=== PATIENT | female | born 1950 | race Two or more races ===

== ENCOUNTER 2019-08-18 14:57 | Inpatient (IN) | payer MEDICARE, OTHER ==
[~2019-08-18] VITALS: Ht 160 cm; Wt 63.5 kg
[2019-08-18] MEDS ORDERED: ESCI5TAB PO (15:29)
[2019-08-18] MEDS ORDERED: IPRA3AMP23 IH (15:29)
[2019-08-18] MEDS ORDERED: MULT-659 PO (15:29)
[2019-08-18] MEDS ORDERED: LACT10SO PO (15:29)
[2019-08-18] MEDS ORDERED: RIFA550T PO (15:29)
[2019-08-18] MEDS ORDERED: INSU100V11 SQ ×2 (15:29)
[2019-08-18] MEDS ORDERED: POLY17PO4 PO (15:29)
[2019-08-18] MEDS ORDERED: OMEP20CA15 PO (15:29)
[2019-08-18] MEDS ORDERED: ACET-2605 PO (15:29)
[2019-08-18] MEDS ORDERED: FURO-145 PO (15:29)
[2019-08-18] MEDS ORDERED: GLUC1KIT IM (15:29)
[2019-08-18] MEDS ORDERED: AMIO200T4 PO (15:29)
[2019-08-18] MEDS ORDERED: L.RH1CAP2 PO (15:29)
[2019-08-18] MEDS ORDERED: SPIR50TA5 PO (15:29)
[2019-08-18] MEDS ORDERED: ATOR10TA PO (15:29)
[2019-08-18] MEDS ORDERED: INSU100V10 SQ (15:29)
[2019-08-18 15:37] LABS: BASOPHILS % (AUTO) 0.4 % (0.0-2.0); HEMATOCRIT 26 % (33-45); HEMOGLOBIN 8.6 g/dL (11.5-14.8); LYMPHOCYTES # (AUTO) 0.8 /CMM (0.8-4.8); LYMPHOCYTES % (AUTO) 10.9 % (20.0-44.0); MEAN CORPUSCULAR HGB CONC 34 g/dl (31.0-36.0); MEAN CORPUSCULAR VOLUME 93 fL (82-100); MONOCYTES # (AUTO) 0.5 /CMM (0.1-1.30); MONOCYTES % (AUTO) 7.8 % (2.0-12.0); NEUTROPHILS # (AUTO) 5.2 /CMM (1.8-8.9); NEUTROPHILS % (AUTO) 74.9 % (43.0-81.0); PLATELET COUNT (AUTO) 121 /CMM (150-450); RED BLOOD CELL COUNT(AUTO) 2.75 MIL/uL (4.0-5.2)
[2019-08-18 15:51] LABS: ALBUMIN 2.3 g/dL (3.4-5.0); BILIRUBIN,TOTAL 1.6 mg/dL (0.2-1.0); CALCIUM, SERUM 8.3 mg/dL (8.5-10.1); POTASSIUM 3.3 mmol/L (3.5-5.1); TOTAL PROTEIN, SERUM 6.6 g/dL (6.4-8.2)
--- NOTE | 2019-08-18 15:55 | NUR ---
ER ordered Us guided paracentesis, informed ESDRAS Gunn that we don't have a Radiologist onsite as he has left for the day
--- NOTE | 2019-08-18 16:30 | NUR ---
Awaiting Paracentesis by ER provider
--- NOTE | 2019-08-18 17:01 | NUR ---
[facility] - [facility]LL[facility] - PAGED VIA EXCHANGE
--- NOTE | 2019-08-18 17:57 | NUR ---
Pt going to Tele pending paracentesis in the morning. Nurse [employer] w/RN Gilberto. No acute distress, transported to floor Stable
[2019-08-18] MEDS ORDERED: MAG HYDROX/AL HYDROX/SIMETH 30 ML UDC PO PRN ×2 (18:00→18:15)
[2019-08-18] MEDS ORDERED: MAGNESIUM HYDROXIDE 30 ML UDC PO PRN ×2 (18:00→18:15)
[2019-08-18] MEDS ORDERED: INSULIN REGULAR, HUMAN 100 UNIT/ML 3 ML VIAL SQ PRN (18:00)
[2019-08-18] MEDS ORDERED: ACETAMINOPHEN 325 MG TABLET PO PRN ×2 (18:00→18:15)
[2019-08-18] MEDS ORDERED: ZOLPIDEM TARTRATE 5 MG TABLET PO PRN ×2 (18:00→18:15)
[2019-08-18] MEDS ORDERED: HYDROCODONE/APAP 5/325MG 1 EACH TABLET PO PRN ×2 (18:00→18:15)
[2019-08-18] MEDS ORDERED: DEXTROSE 50%-WATER 50 ML DISP.SYRIN IV PRN ×2 (18:00→18:15)
[2019-08-18] MEDS ORDERED: Z GUARD REMEDY 2 OZ OINT TP PRN ×2 (18:00→18:15)
[2019-08-18] MEDS ORDERED: ONDANSETRON HCL/PF 4 MG/2 ML VIAL IVP PRN ×2 (18:00→18:15)
[2019-08-18 18:15] VITALS: BP 140/61
--- NOTE | 2019-08-18 18:15 | NUR ---
RN NOTES RECEIVED PATIENT VIA GURNEY ACCOMPANIED BY E.R NURSE. A/O X3. CYMRAES SPEAKING, ON RA, TOLERATING WELL. NO SIGNS OF DISTRESS OR DISCOMFORT AT THIS TIME. PATIENT ORIENTED TO ROOM, UNIT AND STAFF. V/S TAKEN FOLLOWS: BP- 140/61, T- 98.5, OK-73, O2 SAT 100%. IV ACCESS ON LEFT HAND #22, PATENT AND INTACT. SAFETY MEASURES IN PLACE, BED PLACED IN LOWEST LOCKED POSITION WITH SIDE RAILS UP X2. CALL LIGHT WITHIN EASY REACH. WILL ENDORSE TO BED TEACHER NURSE FOR ADMISSION.
[2019-08-18 20:00] VITALS: BP 145/52
--- NOTE | 2019-08-18 20:00 | NUR ---
RN notes Received patient awake, alert and oriented x3, indonesian speaking and understand some khmer. Denies any pain and discomfort. Vital signs stable, afebrile. Skin assessment done, sacral redness noted, covered with mepilex. IV access on left hand patent and intact. Plan of care discussed with the patient with one of the [employer]LE ASSEMBLERMadelaine as merchandise director and verbalized understanding. Kept clean and dry. Safety measures in place. Will continue to monitor.
[2019-08-18] MEDS ORDERED: BLOOD SUGAR DIAGNOSTIC 1 EACH STRIP IN SCH (22:00)
[2019-08-18] MEDS: BLOOD SUGAR DIAGNOSTIC 1 EACH STRIP IN SCH (22:23)
[2019-08-18] MEDS: INSULIN REGULAR, HUMAN 100 UNIT/ML 3 ML VIAL SQ PRN (22:26)
--- NOTE | 2019-08-19 06:15 | NUR ---
RN Notes Patient sleep well overnight, vital signs stable, afebrile. Denies pain and discomfort. No complain of nausea and vomiting. Plan today , for CT guided paracentesis, kept NPO. Kept clean and dry. All needs attended. Will endorse for continuity of care.
[2019-08-19] MEDS: BLOOD SUGAR DIAGNOSTIC 1 EACH STRIP IN SCH ×3 (06:45→17:23)
[2019-08-19] MEDS: INSULIN REGULAR, HUMAN 100 UNIT/ML 3 ML VIAL SQ PRN ×2 (06:46→14:15)
--- NOTE | 2019-08-19 07:05 | NUR ---
MS RN OPENING NOTES RECEIVED PATIENT IN BED AWAKE AT THIS TIME WATCHING TV. PT IS KINYARWANDA SPEAKING, A/O X3. SATURATING WELL ON RA, NO APPARENT SIGNS OF DISTRESS OR DISCOMFORT NOTED AT THIS TIME. IV ACCESS ON LEFT HAND #22, PATENT AND INTACT. SAFETY PRECAUTIONS IN PLACE, BED IN LOWEST LOCKED POSITION WITH SIDE RAILS UP X2. CALL LIGHT WITHIN EASY REACH. WILL CONTINUE TO MONITOR
[2019-08-19] MEDS ORDERED: PANTOPRAZOLE 40 MG TABLET.DR PO SCH ×2 (07:30)
[2019-08-19 08:00] VITALS: BP 141/66
--- NOTE | 2019-08-19 09:31 | NUR ---
MS DEWITT NOTES PT REFUSED PANTOPRAZOLE 40MG PO AFTER NURSE HAD PREPARED MED. NURSE HAD TO CLARIFY ADMINISTRATION OF MED WITH [employer] TECH DUE TO PT SCHEDULED FOR PARACENTESIS Addendum: 08/19/19 at 0937 by AMANDA THURSTON RN MS DEWITT NOTES PT REFUSED PANTOPRAZOLE 40MG PO AFTER NURSE HAD PREPARED MED. MEDICATION WASTED DUE TO BEING OPENED. NURSE HAD TO CLARIFY ADMINISTRATION OF MED WITH [facility] TECH DUE TO PT SCHEDULED FOR PARACENTESIS
--- NOTE | 2019-08-19 10:00 | NUR ---
STARTED US GUIDED PARACENTESIS PROCEDURE AT THE BEDSIDE WITH CONSENT SIGNED BY THE PT.
--- NOTE | 2019-08-19 11:32 | NUR ---
COMPLETED US GUIDED PARACENTESIS PROCEDURE WITH STABLE V/S AND OBTAINED 5 LITERS OUTPUT.
--- NOTE | 2019-08-19 12:25 | NUR ---
MS RN NOTES PT HAD PARACENTESIS DONE TODAY WITH 5 LITERS OF FLUID OUTPUT. NURSE CLARIFIED WITH DR CAVAZOS ABOUT SENDING PARACENTESIS FLUID TO LAB. DR CAVAZOS WAS MADE AWARE. PER DR CVAAZOS, PT IS HERE FOR THERAPEUTIC PARACENTESIS AND PARACENTESIS FLUID DOES NOT NEED TO BE SEND TO LAB. ORDERS CARRIED OUR AND IMPLEMENTED
[2019-08-19 16:00] VITALS: BP 149/65
--- NOTE | 2019-08-19 18:00 | NUR ---
DISCHARGED PT BACK TO [facility] WITH STABLE V/S.IV H/L REMOVED TO LT HAND WITH NO BLEEDING NOTED.S/P PARACENTESIS DRSG CLEAN AND DRY.PT STATED THAT SHE GETS THERAPEUTIC PARACENTESIS Q WK IN [facility]. LATEST BLOOD SUGAR WAS 217. NO C/O OF PAIN OR DISTRESS. REPORT CALLED IN TO ESDRAS BARBOUR [employer] MIXER OPERATOR OF [facility]
== END 2019-08-19 18:10 | DRG 433 ==
LOC: ER 14:59 → TELE 18:10 → MED 18:14
PROC: 0W9G3ZZ Drainage of Peritoneal Cavity, Percutaneous Approach (ICD-10-PCS; principal; 2019-08-19)
DX: K70.31 Alcoholic cirrhosis of liver with ascites (principal); K76.6 Portal hypertension; E44.0 Moderate protein-calorie malnutrition; N17.9 Acute kidney failure, unspecified; D64.9 Anemia, unspecified; E87.6 Hypokalemia; E88.09 Other disorders of plasma-protein metabolism, not elsewhere classified; I12.9 Hypertensive chronic kidney disease with stage 1 through stage 4 chronic kidney disease, or unspecified chronic kidney disease; E11.22 Type 2 diabetes mellitus with diabetic chronic kidney disease; Z79.4 Long term (current) use of insulin; Z68.24 Body mass index [BMI] 24.0-24.9, adult; N18.3 Chronic kidney disease, stage 3 (moderate); D69.6 Thrombocytopenia, unspecified
CPT/HCPCS: 36415; 76942-TC; 80048-TC; 80076-TC; 82962-TC; 85025-TC; 85730-TC; 87081-TC; G0378; J1815